=== PATIENT | male | born 1990 | race Caucasian/White ===

== ENCOUNTER 2024-02-09 15:01 | Outpatient (OUT) | payer OTHER, SELFPAY ==
--- NOTE | 2024-02-09 15:10 | XR_ITS ---
The [address] [address] Patient Name: DWIGHT GILMAN MRN: [id number] date: 1990 Sex: M Assigned Patient Location: [facility] Current Patient Location: Accession/Order Number: [id number] Exam Date: 02/09/2024 15:15 Report Date: 02/10/2024 07:49 At the request of: ZACH SALCEDO Procedure: XR abdomen 1V EXAMINATION: XR abdomen 1V HISTORY: Kidney Stones COMPARISON: No relevant comparison available. FINDINGS: KIDNEY/URETER - RIGHT: No visible renal or ureteral calcifications. KIDNEY/URETER - LEFT: Small calcification projecting over lower pole of kidney. PELVIS: No appreciable ureteral stones. Stable calcifications within right side of pelvis compatible with phleboliths. BOWEL: No abnormal dilation or deviation. BONES: No acute abnormality. OTHER: Negative. No abnormal gaseous collections. XR/XR abdomen 1V IMPRESSION: 1. Left nephrolithiasis. Electronically authenticated by: HOLLI SUAREZ Date: 02/10/2024 07:49
== END 2024-02-09 15:02 | disposition home or self-care (01) ==
LOC: RAD 15:05
PROVIDERS: PCP Family Medicine; Visit Provider Urology
DX: N20.0 Calculus of kidney (principal)
CPT/HCPCS: 74018

== ENCOUNTER 2025-02-08 10:44 | Outpatient (OUT) | payer OTHER, SELFPAY ==
--- NOTE | 2025-02-08 10:54 | XR_ITS ---
The [place] [id number] Patient Name: DWIGHT GILMAN MRN: [id number] date: 1990 Sex: M Assigned Patient Location: RAD Current Patient Location: [facility] Accession/Order Number: [id number] Exam Date: 02/08/2025 12:54 Report Date: 02/08/2025 12:55 At the request of: LEW TRAORE NP Procedure: XR abdomen 1V KUB: CLINICAL INFORMATION: Kidney stone follow-up COMPARISON: KUB 02/09/2024 FINDINGS: No suspicious urinary tract calcifications are noted. Platelets are seen within the pelvis. No bowel obstruction or free air. Osseous structures demonstrate degenerative change. XR/XR abdomen 1V IMPRESSION: THE URINARY TRACT CALCULUS IS SEEN. Impression dictated by: Iveth Cox Jr.ORafia02/08/2025 12:55 PM Dictation Location: [place] [id number] Electronically authenticated by: [id number] Y Date: 02/08/2025 12:55
== END 2025-02-08 10:45 | disposition home or self-care (01) ==
LOC: RAD 10:46
PROVIDERS: PCP Family Medicine; Visit Provider Nurse Practitioner Family
DX: N20.0 Calculus of kidney (principal)
CPT/HCPCS: 74018